=== PATIENT | male | born 2000 | race Caucasian/White ===

== ENCOUNTER 2020-01-26 16:40 | Emergency (ER) | payer BC, SELFPAY ==
[2020-01-26 18:10] VITALS: BP 117/79; PULSE 56; RESP 18; TEMP 36.7; O2SAT 97; BMI 31.8
--- NOTE | 2020-01-26 18:28 | HMH.EDUTC ---
[facility] [place] Disposition Clinical Impression: Exposure to COVID-19 virus Disposition: Home, Self-Care Condition on Discharge: Good Instructions: Preventing the Spread of Coronavirus Discharge Instructions Additional Instructions: Your test results will be available later tonight or in the morning. Please isolate yourself as if you are positive until test results received. Referrals: PCP,No [Primary Care Provider] - Time of Disposition: 18:30 Medical Decision Making - Дмитрий Inquiry Pt receiving controlled substance: No Vital Signs: 01/26/20 18:10 Temperature 98.1 F Temperature Source Oral Pulse Rate [Right Brachial] 56 L Respiratory Rate 18 Blood Pressure [Right Arm] 117/79 Blood Pressure Mean [Right Arm] 91 Blood Pressure Source [Right Arm] Automatic Cuff Blood Pressure Position [Right Arm] Sitting 02 Sat by Pulse Oximetry 97 Oxygen Delivery Method Room Air Orders (Tests/Meds): ORDERS Category Date Time Status Covid-19 Nasal PCR ([facility]) Routine Lab 01/26/20 18:08 Received [facility] [place] HPI - General Stated complaint: COVID test Time Seen by Provider: 01/26/20 18:28 Mode of Arrival: Ambulatory Source of Information: Patient Limitations: No Limitations Description of Symptoms (Recalled from Triage Doc. by RN): PATIENT REQUESTING COVID TEST, STATES HE WAS EXPOSED TO SOMEONE WHO MAY HAVE BEEN EXPOSED; DENIES SYMPTOMS HEENT Symptoms (Recalled from RN notes): No Resp Symptoms (Recalled from RN notes): No Skin Symptoms (Recalled from RN notes): No MS Symptoms (Recalled from RN notes): No Functional Status (Recalled from RN notes): WNL - History of Present Illness Provider Complaint: Patient is asymptomatic but is worried about COVID19 exposure. Onset (ago): day(s) (1) Relieving factors: none Exacerbating factors: none Associated symptoms: denies other symptoms Treatments prior to arrival: none - Related Data Allergies Allergy/AdvReac Type Severity Reaction Status Date / Time No Known Allergies Allergy Verified 09/24/18 15:38 - Worker's Comp Is this a Worker's Comp case?: No [facility] History - Hepatitis A Screen Drug use history?: No High risk sexual behaviors?: No History of sexually transmitted infection?: No Currently employed?: No Childcare worker?: No Do you have indoor plumbing?: Yes Do you have electricity?: Yes Attestation statement:: This patient has been screened for Hepatitis A risk factors. I have reviewed the patient's past medical history: Yes Other Surgeries: Yes: No Previous Surgery - Social History Smoking Status: Never smoker Alcohol Intake: never Occupational Status: other Household Members: family Family Hx:: Diabetes ROS Obtained: Yes All systems reviewed & no additional complaints Physical Exam - General General appearance: alert, in no apparent distress - Head Head exam: normocephalic - Eye Eye exam: Present: PERRL - Respiratory Respiratory exam: Present: normal lung sounds bilaterally - Cardiovascular Cardiovascular exam: Present: regular rate, normal rhythm - Neurological Exam Neurological exam: Present: alert, oriented X3 - Psychiatric Psychiatric exam: Present: normal affect, normal mood - Skin Skin exam: Present: warm, dry, intact
[2020-01-26 18:36] VITALS: BP 117/79; PULSE 56; RESP 18; TEMP 36.7; O2SAT 97
== END 2020-01-26 18:40 | disposition home or self-care (01) ==
PROVIDERS: Emergency Provider Physician Assistant
DX: Z20.828 Contact with and (suspected) exposure to other viral communicable diseases (principal)
CPT/HCPCS: 99201; U0003